=== PATIENT | female | born 1975 | race Caucasian/White ===

== ENCOUNTER 2019-01-29 09:47 | Day surgery (SDC) | payer OTHER ==
[~2019-01-29 09:47] MED LIST: CARISOPRODOL350 MG PO; DEPAKOTE ER500 MG PO; DICY20TA PO; DORZOLAMIDE 2%10 ML OP; FLECAINIDE ACE150 MG PO; INDOMETHACIN50 MG PO; LINZESS290 MCG PO; METHOTREXATE2.5 MG PO; PROLIA60 MG/1 ML SUBCUTANEO; PROTONIX40 MG PO; REQUIP0.25 MG PO; RESTORA CAPSUL1 EACH PO; SULINDAC200 MG PO; VALIUM PO; VITAMIN D350000 UNIT PO; ZANTAC300 MG PO
== END 2019-01-29 16:30 | disposition home or self-care (01) ==
LOC: CIR.AMB 09:47
DX: G56.21 Lesion of ulnar nerve, right upper limb (principal)

== ENCOUNTER 2019-08-27 09:32 | Day surgery (SDC) | payer OTHER ==
[~2019-08-27 09:32] MED LIST changes: +ORENCIA50 MG/0.4 PO
== END 2019-08-27 16:25 | disposition home or self-care (01) ==
LOC: CIR.AMB 09:32
DX: M77.11 Lateral epicondylitis, right elbow (principal)

== ENCOUNTER 2020-04-14 07:25 | Outpatient (CLI) | payer OTHER | END 2020-04-14 07:33 | disposition home or self-care (01) | LOC: NUCLEAR 07:25 | PROVIDERS: ATTEND Internal Medicine Rheumatology | DX: M87.08 Idiopathic aseptic necrosis of bone, other site (principal) | CPT/HCPCS: 78315; A9503 ==

== ENCOUNTER 2021-06-19 18:24 | Emergency (ER) | payer OTHER ==
[~2021-06-19] VITALS: Ht 157.5 cm; Wt 51.7 kg
[2021-06-19] MEDS ORDERED: NORFLEX100MG PO (20:49)
[2021-06-19] MEDS ORDERED: MEDROLPACK PO (20:49)
[2021-06-19] MEDS ORDERED: KETO10TA2 PO (20:49)
== END 2021-06-19 20:54 | disposition home or self-care (01) ==
LOC: ER 18:24
DX: M79.641 Pain in right hand (principal); M79.631 Pain in right forearm; M25.521 Pain in right elbow; M79.621 Pain in right upper arm